=== PATIENT | female | born 1990 | race Caucasian/White ===

== ENCOUNTER 2019-10-07 18:34 | Outpatient (CLI) | payer OTHER ==
[~2019-10-07] VITALS: Ht 165.1 cm; Wt 89.9 kg
[2019-10-07 18:52] VITALS: BP 134/78
[2019-10-07] MEDS ORDERED: TUMS500C PO (18:53)
[2019-10-07] MEDS ORDERED: PRENTAB9 PO (18:53)
[2019-10-07 20:11] VITALS: BP 111/72
--- NOTE | 2019-10-08 07:01 | HPE ---
DATE OF ADMISSION: 10/07/2019 29-year-old, 1, para 0, last menstrual period (LMP) 03/12/2019, expected date of confinement (EDC) 12/17/2019 at 30 weeks of gestation with history of decreased movement, questionable loss of mucus plug and some old blood. No contractions were noted. Labs are O+. HIV negative. Hepatitis negative. RPR negative. Rubella immune. Varicella immune. Pap normal. Urine was negative. Blood pressure 111/72, respirations 18, pulse 82, temperature 98.0. Urine is 1.005, pH 7, +3 blood, trace protein, and +1 ketones. This patient has had nothing to eat or drink since 11 o'clock this morning. On examination, no distress. Symphysis fundus height is 28, vertex presenting. Category 1/2 strip secondary to dehydration, has not eaten or drank anything since 11 o'clock this morning. Sterile Speculum Examination: Cervix was closed, anterior scant old blood was noted, a lot of mucus. Ultrasound was performed, abdominal, after consent. MARILOU total 11.67, smallest pocket is 3.28, cervical length was 2.85, with Valsalva 2.50, no funneling, vertex was tight to the cervix. Plan: To increase fluids. Discharge undelivered. Keep appointment in two weeks' time. Precautions were given. The patient was sent home undelivered.
== END 2019-10-07 20:18 | disposition home or self-care (01) ==
LOC: M LDO 18:34
PROVIDERS: ATTEND Obstetrics & Gynecology
DX: O36.8130 Decreased fetal movements, third trimester, not applicable or unspecified (principal); O99.283 Endocrine, nutritional and metabolic diseases complicating pregnancy, third trimester; E86.0 Dehydration; Z3A.30 30 weeks gestation of pregnancy
CPT/HCPCS: 76815; G0378; G0463

== ENCOUNTER 2019-11-19 07:00 | Inpatient (IN) | payer OTHER ==
[~2019-11-19 07:00] MED LIST: PRENTAB9 PO; TUMS500C PO
[2019-11-19] MEDS ORDERED: PENICILLIN G POTASSIUM 5 MU VIAL As Ordered ONE (07:44)
[2019-11-19] MEDS ORDERED: PENICILLIN G POTASSIUM 5 MU VIAL ONE (07:44)
[2019-11-19] MEDS ORDERED: FENTANYL 2MCG/ML ROPIVACAINE 0.2% IN 0.9% NACL 100ML IVBAG As Ordered ONE (07:58)
[2019-11-19] MEDS ORDERED: OXYTOCIN 30 UNITS IN 0.9% NaCl 500ML IV BAG (J2590) ONE ×2 (08:00→09:30)
[2019-11-19] MEDS ORDERED: OXYTOCIN 30 UNITS IN 0.9% NaCl 500ML IV BAG (J2590) As Ordered ONE ×2 (08:06→09:43)
[2019-11-19] MEDS ORDERED: miSOPROStol 200 MCG TAB (S0191) ONE (09:30)
[2019-11-19] MEDS ORDERED: miSOPROStol 200 MCG TAB (S0191) As Ordered ONE (09:37)
[2019-11-19] MEDS ORDERED: OXYTOCIN INJ 10 UNITS/ML VIAL (J2590) ONE (12:00)
[2019-11-19] MEDS ORDERED: OXYTOCIN INJ 10 UNITS/ML VIAL (J2590) As Ordered ONE (12:06)
[2019-11-19] MEDS ORDERED: IBUPROFEN 600MG TAB ONE (18:38)
[2019-11-19] MEDS ORDERED: IBUPROFEN 600MG TAB As Ordered ONE (18:38)
[2019-11-20] MEDS ORDERED: IBUPROFEN 600MG TAB ONE (09:21)
[2019-11-20] MEDS ORDERED: IBUPROFEN 600MG TAB As Ordered ONE ×2 (09:21→19:58)
[2019-11-20] MEDS ORDERED: IBUPROFEN 800 MG TAB ONE (19:58)
--- NOTE | 2020-01-01 09:06 | DN ---
DATE OF DELIVERY: 11/19/2019 This lady is a 1, para 0 at 36 weeks of gestation who was admitted in active labor. Had a precipitous delivery after spontaneous rupture of membranes, a live- female infant weighing 5 pounds 2 ounces, 2320 grams, scores of 9 and 9 at one and five minutes, respectively. She had a spontaneous delivery of the placenta, which showed an obvious abruption, about 40%. She had a first- degree tear, which was oversewn in the usual fashion with 2-0 Vicryl in a J339. Uterus contracted well down on Pitocin. We also gave Cytotec 1000 mg per rectum, massaged the uterus down, well contracted. Patient and baby tolerating the procedure well. MTDD
--- NOTE | 2020-01-01 09:16 | HPE ---
DATE OF ADMISSION: 11/19/2019 HISTORY OF PRESENT ILLNESS: This lady is a 29-year-old 1, para 0, last menstrual period (LMP) 03/12/2019, estimated date of confinement (EDC) 12/17/2019. At 36 weeks of gestation admitted with contractions four minutes apart moderate in intensity. PHYSICAL EXAMINATION: She is 90% effaced, 5 cm, 0 station, membranes intact. LABORATORY DATA: O positive. HIV negative. Hepatitis negative. RPR negative. Rubella immune. Varicella immune. Pap normal. Urine was negative. Gonorrhea and chlamydia negative. One hour glucose 93. PHYSICAL EXAMINATION: On admission, she is in active labor. Temperature 97.0, respirations 18, pulse 85, and blood pressure 116/67. ASSESSMENT AND PLAN: She has a category 1 strip and is anticipating delivery. Requesting epidural. We will hydrate the patient. We may not have time for epidural. Patient and baby tolerating procedure well at the present time. Safe to proceed. YEIMID
--- NOTE | 2020-01-01 09:20 | DSES ---
DATE OF ADMISSION: 11/19/2019 DATE OF DISCHARGE: 11/21/2019 This lady is a 1, now para 1, who was admitted in spontaneous active labor at 36 weeks of gestation. She had a spontaneous vaginal delivery with no anesthesia of a live- female infant, 5 pounds 2 ounces, 2320 grams, scores of 9 and 9 at one and five minutes, respectively. Arterial pH 7.39, base excess -1.9, venous pH 7.44, base excess -1.4. She had a precipitous delivery. GBS status was unknown. She had a small first degree, which was repaired in the usual fashion, 2-0 Vicryl on a J339. There was a moderate abruption of the placenta. It was sent to pathology for evaluation. On her second postoperative day, we discussed phlebitis, cystitis, mastitis, metritis, and cellulitis, diet, exercise, pain management, and perineal, breast, and wound care. 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 Discuss control at her 6-week checkup. Baby is presently being evaluated for its bilirubin and hopefully will be home tomorrow. The rest of the examination is unremarkable. Normocephalic, atraumatic. Neck: full range of motion. Pupils equal and reactive to light. Distal pulses are symmetric. No evidence of deep venous thrombosis (DVT), pulmonary embolus (PE), or superficial phlebitis. Chest is clear bilaterally to bases. No wheezes or rhonchi. No costovertebral angle (CVA) tenderness. Abdomen is soft. Four-quadrant bowel sounds are noted. She has no nausea, vomiting, diarrhea, or constipation. She has no evidence of urgency or frequency. Vital signs are stable. She is afebrile. Her discharge hemoglobin 9.9, hematocrit 30.7, and platelets 236. Admitting hemoglobin 12.6, hematocrit 36.7, pulse are 275. SUMMARY: We have 36-week gestation, spontaneous delivery of a live- female infant. Discharged improved. Followup in 6 weeks for a checkup. Medications were dispensed at [facility]. Supplemental iron was also dispensed at [facility]. [facility]
[2020-01-10 16:43] LABS: HEMATOCRIT 36.7 % (36.0-47.0); HEMOGLOBIN 12.6 g/dl (12.0-15.5); MEAN CORPUSCULAR HEMOGLOBIN 29.9 pg (27.0-33.0); MEAN CORPUSCULAR HGB CONC 34.3 g/dl (32.0-36.5); MEAN CORPUSCULAR VOLUME 87.2 fl (80.0-96.0); PLATELET COUNT, AUTOMATED 275 10^3/uL (150-450); RED BLOOD COUNT 4.21 10^6/uL (4.00-5.40); WHITE BLOOD COUNT 14.5 10^3/uL (4.0-10.0)
[2020-01-17 06:47] LABS: HEMATOCRIT 30.3 % (36.0-47.0); HEMOGLOBIN 9.9 g/dl (12.0-15.5); MEAN CORPUSCULAR HEMOGLOBIN 29.8 pg (27.0-33.0); MEAN CORPUSCULAR HGB CONC 32.7 g/dl (32.0-36.5); MEAN CORPUSCULAR VOLUME 91.3 fl (80.0-96.0); PLATELET COUNT, AUTOMATED 236 10^3/uL (150-450); RED BLOOD COUNT 3.32 10^6/uL (4.00-5.40); WHITE BLOOD COUNT 11.2 10^3/uL (4.0-10.0)
[2020-02-12 06:29] LABS: CORD GAS PCO2 A 37.6 mmHg; CORD GAS PH A 7.394 UNITS; CORD GAS PO2 A 13.6 mmHg
[2020-02-12 06:30] LABS: CORD GAS ABE A -1.9; CORD GAS HCO3 A 22.5 MEQ/L; CORD GAS O2 SAT A 26.4 %; CORD GAS SBC A 20.9 MEQ/L; CORD GAS TCO2 A 23.6 MEQ/L
[2020-02-12 06:38] LABS: CORD GAS ABE V -1.4; CORD GAS HCO3 V 21.3 MEQ/L; CORD GAS O2 SAT V 63.2 %; CORD GAS PCO2 V 31.6 mmHg; CORD GAS PH V 7.447 UNITS; CORD GAS PO2 V 24.9 mmHg; CORD GAS SBC V 22.3 MEQ/L; CORD GAS TCO2 V 22.3 MEQ/L
== END 2019-11-21 14:05 | disposition home or self-care (01) | DRG 807 ==
LOC: M LDI 07:00
PROVIDERS: ADMIT Obstetrics & Gynecology; ATTEND Obstetrics & Gynecology
PROC: 10E0XZZ Delivery of Products of Conception, External Approach (ICD-10-PCS; principal; 2019-11-19)
PROC: 0HQ9XZZ Repair Perineum Skin, External Approach (ICD-10-PCS; 2019-11-19)
DX: O60.14X0 Preterm labor third trimester with preterm delivery third trimester, not applicable or unspecified (principal); Z37.0 Single live birth; Z3A.36 36 weeks gestation of pregnancy; O62.3 Precipitate labor; O70.0 First degree perineal laceration during delivery

== ENCOUNTER 2021-04-10 21:33 | Inpatient (IN) | payer OTHER ==
[~2021-04-10] VITALS: Ht 167.6 cm; Wt 100.3 kg
[2021-04-10] VITALS (12 sets, daily range): BP systolic 112–179; BP diastolic 63–85
[2021-04-10] MEDS ORDERED: VITA100T59 PO (21:53)
[2021-04-10] MEDS ORDERED: IRON27TA2 PO (21:53)
[2021-04-10] MEDS ORDERED: COLA100C5 PO (21:53)
[2021-04-10] MEDS ORDERED: FIOR1CAP PO (21:53)
[2021-04-10] MEDS ORDERED: HOME MED LIST COMPLETE! XX SCH (21:55)
[2021-04-10] MEDS ORDERED: OXYTOCIN INJ 10 UNITS/ML VIAL (J2590) IV PRN (22:10)
[2021-04-10] MEDS ORDERED: OXYTOCIN DRIP 30 UNITS in IV 1 EA IV PRN ×4 (22:10)
[2021-04-10] MEDS ORDERED: LACTATED RINGER'S 1000 ML IV ONE (22:10)
[2021-04-10 22:41] LABS: HEMATOCRIT 33.5 % (36.0-47.0); HEMOGLOBIN 11.4 g/dl (12.0-15.5); MEAN CORPUSCULAR HEMOGLOBIN 29.8 pg (27.0-33.0); MEAN CORPUSCULAR VOLUME 87.7 fl (80.0-96.0); PLATELET COUNT, AUTOMATED 211 10^3/uL (150-450); RED BLOOD COUNT 3.82 10^6/uL (4.00-5.40); WHITE BLOOD COUNT 11.5 10^3/uL (4.0-10.0)
[2021-04-10] MEDS ORDERED: FENTANYL 2MCG/ML ROPIVACAINE 0.2% IN 0.9% NACL 100ML IVBAG As Ordered ONE (22:57)
[2021-04-10] MEDS ORDERED: ONDANSETRON 4MG/2ML VIAL IV PRN (23:04)
[2021-04-10] MEDS ORDERED: FENTANYL/ROPIVACAINE/NACL BAG 100 ML EPIDURAL SCH (23:04)
[2021-04-10] MEDS ORDERED: LACTATED RINGER'S 1000 ML IV PRN (23:04)
[2021-04-10] MEDS ORDERED: diphenhydrAMINE 50MG/ML VIAL (J1200) IV PRN (23:04)
[2021-04-10] MEDS ORDERED: REFRIGERATOR IV KEYS XX PRN (23:04)
[2021-04-10] MEDS ORDERED: ePHEDrine SULFATE 25 MG/5 ML(5MG/ML) SYRINGE IV PRN (23:04)
[2021-04-10] MEDS ORDERED: NALOXONE INJ 0.4MG/1ML VIAL (J2310 PER 1MG) IV PRN (23:04)
[2021-04-10] MEDS ORDERED: EPIDURAL/PCA KEYS XX PRN (23:04)
[2021-04-10] MEDS ORDERED: EPIDURAL COMMENT XX SCH (23:04)
[2021-04-10] MEDS: LR 1,000 ML IV SCH (23:47)
[2021-04-11] VITALS (18 sets, daily range): BP systolic 99–138; BP diastolic 58–79
[2021-04-11] MEDS: LR 1,000 ML IV SCH (03:22)
[2021-04-11] MEDS ORDERED: MEASLES,MUMPS,RUBELLA VACCINE INJ (MMR-II) (90707) SC SCH (04:50)
[2021-04-11] MEDS ORDERED: OXYTOCIN DRIP 30 UNITS in IV 1 EA IV ONE (04:50)
[2021-04-11] MEDS ORDERED: DIBUCAINE 1% OINTMENT 30GM TOP PRN (04:50)
[2021-04-11] MEDS ORDERED: ACETAMINOPHEN 500 MG TAB PO PRN (04:50)
[2021-04-11] MEDS ORDERED: RHOGAM 300 MCG (1500 IU) INJ (J2790) IM SCH (04:50)
[2021-04-11] MEDS ORDERED: OXYTOCIN INJ 10 UNITS/ML VIAL (J2590) IV ONE (04:50)
[2021-04-11] MEDS ORDERED: METHYLERGONOVINE MALEATE 0.2 MG TAB PO PRN (04:50)
[2021-04-11] MEDS ORDERED: ACETAMINOPHEN TAB 650MG DOSE (2X325MG) PO PRN (04:50)
[2021-04-11] MEDS ORDERED: MOM 30ML SUSPENSION UDC PO PRN (04:50)
[2021-04-11] MEDS ORDERED: DOCUSATE SODIUM 100MG CAPSULE PO PRN (04:50)
[2021-04-11] MEDS ORDERED: ANUSOL HC CREAM 30GM TOP PRN (04:50)
[2021-04-11] MEDS ORDERED: LR 1,000 ML IV SCH (04:50)
[2021-04-11 05:04] LABS: CORD GAS ABE A 1.9; CORD GAS HCO3 A 28.4 MEQ/L; CORD GAS O2 SAT A 46.3 %; CORD GAS PCO2 A 50.7 mmHg; CORD GAS PH A 7.366 UNITS; CORD GAS PO2 A 21.3 mmHg; CORD GAS SBC A 24.5 MEQ/L; CORD GAS TCO2 A 29.9 MEQ/L
[2021-04-11 05:05] LABS: CORD GAS ABE V 0.8; CORD GAS HCO3 V 26.4 MEQ/L; CORD GAS O2 SAT V 55.7 %; CORD GAS PH V 7.386 UNITS; CORD GAS PO2 V 23.4 mmHg; CORD GAS TCO2 V 27.8 MEQ/L
[2021-04-11] MEDS: IBUPROFEN 600MG TAB PO PRN ×2 (08:04→14:20)
[2021-04-11] MEDS: FIORICET TAB PO SCH ×2 (08:04→21:12)
[2021-04-11] MEDS: PRENATAL VITAMINS CHEWABLE TABLET PO SCH (11:50)
[2021-04-12 06:00] VITALS: BP 137/83
[2021-04-12 07:10] LABS: HEMATOCRIT 32.9 % (36.0-47.0); HEMOGLOBIN 10.9 g/dl (12.0-15.5); MEAN CORPUSCULAR HEMOGLOBIN 29.9 pg (27.0-33.0); MEAN CORPUSCULAR HGB CONC 33.1 g/dl (32.0-36.5); MEAN CORPUSCULAR VOLUME 90.4 fl (80.0-96.0); PLATELET COUNT, AUTOMATED 179 10^3/uL (150-450); RED BLOOD COUNT 3.64 10^6/uL (4.00-5.40); WHITE BLOOD COUNT 9.9 10^3/uL (4.0-10.0)
[2021-04-12] MEDS: FIORICET TAB PO SCH (08:49)
[2021-04-12] MEDS: PRENATAL VITAMINS CHEWABLE TABLET PO SCH (08:49)
== END 2021-04-12 15:50 | disposition home or self-care (01) | DRG 807 ==
LOC: M LDO 21:33 → M LDI 22:13 → M OBS 04-11 08:28
PROVIDERS: ADMIT Obstetrics & Gynecology; ATTEND Obstetrics & Gynecology
PROC: 10E0XZZ Delivery of Products of Conception, External Approach (ICD-10-PCS; principal; 2021-04-11)
PROC: 0HQ9XZZ Repair Perineum Skin, External Approach (ICD-10-PCS; 2021-04-11)
DX: O48.0 Post-term pregnancy (principal); Z37.0 Single live birth; Z3A.40 40 weeks gestation of pregnancy; O70.0 First degree perineal laceration during delivery